=== PATIENT | female | born 1965 | race African-American/Black ===

== ENCOUNTER 2023-06-02 08:39 | Outpatient (CLI) | payer MEDICARE, MEDICAID ==
[2023-06-02 11:57] LABS: BASOPHILS # (AUTO) 0.1 10^3/uL (0.0-0.1); BASOPHILS % (AUTO) 0.7 %; EOSINOPHILS # (AUTO) 0.1 10^3/uL (0.0-0.7); EOSINOPHILS % (AUTO) 1.4 %; HCT - HEMATOCRIT 34.2 % (37.0-47.0); HGB - HEMOGLOBIN 11.2 g/dL (12.0-16.0); LYMPHOCYTES # (AUTO) 1.6 10^3/uL (1.5-3.5); LYMPHOCYTES % (AUTO) 23.1 %; MEAN CORPUSCULAR HGB CONC 32.7 g/dL (32.0-36.0); MEAN CORPUSCULAR VOLUME 85.5 fL (81.0-99.0); MEAN PLATELET VOLUME 9.7 fL (7.9-10.8); MONOCYTES # (AUTO) 0.5 10^3/uL (0.0-1.0); MONOCYTES % (AUTO) 6.8 %; NEUTROPHILS # (AUTO) 4.8 10^3/uL (1.5-6.6); NEUTROPHILS % (AUTO) 67.7 %; PLT - PLATELET COUNT 378 10^3/uL (130-450); RED CELL DISTRIBUTION WIDTH 12.9 % (12.0-15.0); WHITE BLOOD COUNT 7.1 x10^3/uL (4.8-10.8)
[2023-06-02 12:10] LABS: ESTIMATED AVERAGE GLUCOSE 97 mg/dL (70-100)
[2023-06-02 12:14] LABS: ALBUMIN/GLOBULIN RATIO 1.4 (1.0-2.2); ALKALINE PHOSPHATASE 76 IU/L (42-121); ALT ALANINE AMINOTRANSFERASE 20 IU/L (10-60); AST ASPARTATE AMINOTRANSFERASE 19 IU/L (10-42); BUN - BLOOD UREA NITROGEN 24 mg/dL (6-20); CALCIUM 9.5 mg/dL (8.5-10.3); CARBON DIOXIDE - CO2 25 mmol/L (21-32); CHLORIDE 111 mmol/L (101-111); CHOL/HDL RATIO 2.9 (<4.4); CHOLESTEROL 170 mg/dL; CREATININE 1.2 mg/dL (0.6-1.3); GFR - MDRD 46 (>89); GLUCOSE 87 mg/dL (74-104); HDL CHOLESTEROL 59 mg/dL; LDL CHOLESTEROL,CALCULATED 91 mg/dL; LDL/HDL RATIO 1.5 (<4.4); POTASSIUM 3.6 mmol/L (3.5-4.5); SODIUM 142 mmol/L (135-145); TOTAL PROTEIN 6.8 g/dL (6.4-8.9); TRIGLYCERIDES 98 mg/dL (48-352); VLDL CHOLESTEROL 20 mg/dL
[2023-06-02 12:18] LABS: THYROID STIMULATING HORMONE 1.83 uIU/mL (0.34-5.60)
== END 2023-06-02 08:40 | disposition home or self-care (01) ==
LOC: LAB.N 08:39
PROVIDERS: ATTEND Family Medicine
DX: R03.0 Elevated blood-pressure reading, without diagnosis of hypertension (principal); N63.0 Unspecified lump in unspecified breast; R14.0 Abdominal distension (gaseous); C76.2 Malignant neoplasm of abdomen; R23.8 Other skin changes
CPT/HCPCS: 36415; 80053; 80061; 83036; 83721; 84443; 85025

== ENCOUNTER 2023-06-05 11:43 | Outpatient (CLI) | payer MEDICARE, MEDICAID ==
[2023-06-05] MEDS ORDERED: iohexoL-300 100 ML VIAL ONE (11:47)
[2023-06-05] MEDS ORDERED: DIATRIZOATE MEGLU/DIATRIZO SOD 30 ML BOTTLE PO ONE (11:47)
--- NOTE | 2023-06-05 14:07 | CT Report ---
PROCEDURE: Abdomen/Pelvis W INDICATIONS: ABD DISTENSION CONTRAST: Omnipaque 300 100ml TECHNIQUE: After the administration of intravenous contrast, a CT scan of the abdomen and pelvis was performed. Images were recorded and evaluated at appropriate window settings. Reformats: coronal and sagittal. F or radiation dose reduction, the following was used: automated exposure control, adjustment of mA and /or kV according to patient size. COMPARISON: None. FINDINGS: Image quality: Diagnostic. Lower chest: Unremarkable. Liver: No solid mass. Gallbladder and biliary tree: Contracted but grossly unremarkable. Spleen: No splenomegaly. Pancreas: No pancreatic ductal dilation. Adrenals: No adrenal nodule. Kidneys and ureters: Significant bilateral hydronephrosis and hydroureter are present. Stomach, bowel and peritoneum: Significant colonic stool without definitive obstruction. Lymph nodes: No central or retroperitoneal adenopathy. Vessels: No infrarenal aortic aneurysm. PELVIS Reproductive organs: There is a large septated complex solid/cystic mass within the lower pelvis william uring 9.9 x 11.6 x 12.4 cm. Areas of satellite lobulation are also present the largest measuring 3.9 x 3.5 cm on series 2 image 108. Bladder: The bladder is deviated anteriorly secondary to above-described mass. Pelvic lymph nodes: No pelvic adenopathy by size criteria. Bones: No aggressive osseous abnormality. Other: No significant ventral or inguinal hernia. IMPRESSION: Large heterogeneous mass within the lower pelvis as described above most concerning for malignancy. I t is causing obstruction of the distal ureters with severe bilateral hydronephrosis and hydroureter. In addition, there is obstructive effect of the colon causing significant constipation. Despite no gr oss obstruction, there is marked compression of the colon secondary to mass lesion. Reviewed by: Maggie Sweeney MD on 06/05/2023 2:06 PM PDT Approved by: Maggie Sweeney MD on 06/05/2023 2:06 PM PDT Station ID: [id number]
[2023-06-05] MEDS: iohexoL-300 100 ML VIAL IVP ONE (14:47)
[2023-06-05] MEDS: DIATRIZOATE MEGLU/DIATRIZO SOD 30 ML BOTTLE PO ONE (14:48)
== END 2023-06-05 11:44 | disposition home or self-care (01) ==
LOC: DI 11:43
PROVIDERS: ATTEND Family Medicine
DX: C76.2 Malignant neoplasm of abdomen (principal); N13.1 Hydronephrosis with ureteral stricture, not elsewhere classified; K59.00 Constipation, unspecified
CPT/HCPCS: 74177; Q9963; Q9967

== ENCOUNTER 2023-06-28 11:00 | Outpatient (CLI) | payer MEDICARE, MEDICAID | END 2023-06-28 11:01 | disposition home or self-care (01) | LOC: LAB 11:00 | PROVIDERS: ATTEND Family Medicine | DX: C76.2 Malignant neoplasm of abdomen (principal) | CPT/HCPCS: 36415; 82378 ==

== ENCOUNTER 2023-07-11 09:01 | Outpatient (CLI) | payer MEDICARE, MEDICAID ==
--- NOTE | 2023-07-11 21:38 | Ultrasound Report ---
PROCEDURE: Pelvic Limited INDICATIONS: NEOPLASM OF ABD TECHNIQUE: Real-time transabdominal scanning was performed of the pelvic organs, with image documentation. COMPARISON: CT abdomen pelvis 06/05/2023 FINDINGS: Uterus and ovaries are not visualized. There is a complex mass within the lower pelvis measuring 10.0 x 1.3 x 9.8 cm. Areas of internal vascularity with solid and cystic components are identified. This corresponds to mass identified on CT abdomen pelvis on 06/05/2023. IMPRESSION: Heterogeneous mass with areas of solid and cystic components highly concerning for malignancy. Given lack of visualization of the ovaries and uterus, RECEIVABLE EXECUTIVE malignancy is favored. However, other etiologies which has secondary extension into the reproductive organs cannot be excluded. Surgical/oncology con sult is recommended. Additionally, as clinically indicated, further evaluation with MRI may be obtain ed. Reviewed by: Maggie Sweeney MD on 07/11/2023 9:37 PM PDT Approved by: Maggie Sweeney MD on 07/11/2023 9:37 PM PDT Station ID: [id number]
== END 2023-07-11 09:02 | disposition home or self-care (01) ==
LOC: DI 09:01
PROVIDERS: ATTEND Family Medicine
DX: C76.2 Malignant neoplasm of abdomen (principal)
CPT/HCPCS: 36415; 82378

== ENCOUNTER 2023-09-04 16:55 | Inpatient (IN) | payer MEDICARE, MEDICAID ==
[2023-09-04 17:48] LABS: BASOPHILS # (AUTO) 0.1 10^3/uL (0.0-0.1); BASOPHILS % (AUTO) 0.9 %; EOSINOPHILS # (AUTO) 0.1 10^3/uL (0.0-0.7); EOSINOPHILS % (AUTO) 0.9 %; LYMPHOCYTES # (AUTO) 1.2 10^3/uL (1.5-3.5); LYMPHOCYTES % (AUTO) 16.7 %; MEAN CORPUSCULAR HGB CONC 31.6 g/dL (32.0-36.0); MEAN CORPUSCULAR VOLUME 85.4 fL (81.0-99.0); MEAN PLATELET VOLUME 8.2 fL (7.9-10.8); MONOCYTES # (AUTO) 0.5 10^3/uL (0.0-1.0); MONOCYTES % (AUTO) 6.6 %; NEUTROPHILS # (AUTO) 5.2 10^3/uL (1.5-6.6); NEUTROPHILS % (AUTO) 74.5 %; PLT - PLATELET COUNT 372 10^3/uL (130-450); RED BLOOD COUNT 1.85 10^6/uL (4.20-5.40); RED CELL DISTRIBUTION WIDTH 15.8 % (12.0-15.0)
[2023-09-04 17:53] LABS: HCT - HEMATOCRIT 15.8 % (37.0-47.0); INR 1.2 (0.8-1.2); PT - PROTHROMBIN TIME 13.4 secs (9.9-12.6); SLIDE REVIEW? Indicated
[2023-09-04 18:25] LABS: ALBUMIN 4.3 g/dL (3.2-5.5); ALBUMIN/GLOBULIN RATIO 1.9 (1.0-2.2); BILIRUBIN,TOTAL 0.6 mg/dL (0.2-1.0); CALCIUM 9.2 mg/dL (8.5-10.3); CREATININE 2.9 mg/dL (0.6-1.3); POTASSIUM 3.4 mmol/L (3.5-4.5); TOTAL PROTEIN 6.6 g/dL (6.4-8.9)
[2023-09-04 18:40] LABS: PLATELET ESTIMATE, MANUAL NORMAL (130-450,000) (NORMAL); PLATELET MORPHOLOGY NORMAL APPEARANCE (NORMAL); RBC MORPHOLOGY (MULTIPLE) 2+ HYPOCHROMASIA (NORMAL)
--- NOTE | 2023-09-04 19:22 | ED Physician Documentation ---
History of Present Illness - Stated complaint Stated Complaint: SENT BY PCP - Chief complaint Chief Complaint: General - History obtained from History obtained from: Patient - History of Present Illness Timing: Today Pain level max: 5 Pain level now: 5 - Additonal information Additional information: Patient is a 58-year-old female who has a history of "stomach cancer". She states that she has not yet started chemotherapy. She states that she has undergone surgery for debulking of the tumor. Her care was at [facility] in [place]. She states that she has had 2 prior blood transfusions with her surgeries. She states that she had an outpatient blood draw with her oncologist today. Found to have a hemoglobin of 5, sent here for blood transfusion. She states that she is lightheaded when she stands up, short of breath with any exertion. Can only walk about 4 to 5 feet before stopping to rest. Denies any blood in the stool. No history of GI bleeding. Has chronic abdominal pain, unchanged from her normal. 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, Other - Allergies Allergies/Adverse Reactions: Allergies Allergy/AdvReac Type Severity Reaction Status Date / Time oxycodone AdvReac Emesis Verified 09/04/23 19:05 - Social History Does the pt smoke?: No Smoking Status: Never smoker Does the pt drink ETOH?: No Does the pt have substance abuse?: No - Immunizations Immunizations are current?: Yes - POLST Patient has POLST: No PD ED PE NORMAL - Vitals Vital signs reviewed: Yes - General General: Alert and oriented X 3, No acute distress - HEENT HEENT: Moist mucous membranes - Neck Neck: Supple, no meningeal sign - Cardiac Cardiac: RRR - Respiratory Respiratory: No respiratory distress, Clear bilaterally - Abdomen Abdomen: Soft, Non tender, Non distended - Derm Derm: Warm and dry - Extremities Extremities: No edema - Neuro Neuro: Alert and oriented X 3 Results - Vitals Vitals: Vital Signs - 24 hr 0709/04/23 09/04/23 17:03 19:32 20:15 Temperature 37.1 C Heart Rate 120 H 105 H Heart Rate [ 103 H Monitoring electrodes] Respiratory 18 15 30 H Rate Blood Pressure 140/74 H 103/67 Blood Pressure 101/63 [Left Brachial artery] O2 Saturation 100 97 100 09/04/23 09/04/23 20:16 20:30 Temperature 37.1 C 37.3 C Heart Rate Heart Rate [ 104 H 107 H Monitoring electrodes] Respiratory 18 17 Rate Blood Pressure Blood Pressure 96/68 100/72 [Left Brachial artery] O2 Saturation 100 100 Oxygen O2 Source Room air - Labs Labs: Laboratory Tests 09/04/23 09/04/23 09/04/23 15:43 17:40 17:40 WBC 7.0 RBC 1.85 L Hgb 5.0 L* Hct 15.8 L* MCV 85.4 MCH 27.0 MCHC 31.6 L RDW 15.8 H Plt Count 372 MPV 8.2 Neut # (Auto) 5.2 Lymph # (Auto) 1.2 L [place] # (Auto) 0.5 Eos # (Auto) 0.1 Baso # (Auto) 0.1 Absolute Nucleated RBC 0.00 Nucleated RBC % 0.0 Manual Slide Review Indicated Platelet Estimate NORMAL (130-450,000) Platelet Morphology NORMAL APPEARANCE RBC Morph Micro Appear 2+ HYPOCHROMASIA PT INR Sodium Potassium Chloride Carbon Dioxide Anion Gap BUN Creatinine Estimated GFR (MDRD) Glucose Calcium Total Bilirubin AST ALT Alkaline Phosphatase Total Protein Albumin Globulin Albumin/Globulin Ratio Lipase Blood Type A POSITIVE Blood Type Recheck A POSITIVE Antibody Screen NEGATIVE Crossmatch IS Only See Detail 09/04/23 09/04/23 17:40 17:40 WBC RBC Hgb Hct MCV MCH MCHC RDW Plt Count MPV Neut # (Auto) Lymph # (Auto) [place] # (Auto) Eos # (Auto) Baso # (Auto) Absolute Nucleated RBC Nucleated RBC % Manual Slide Review Platelet Estimate Platelet Morphology RBC Morph Micro Appear PT 13.4 H INR 1.2 Sodium 132 L Potassium 3.4 L Chloride 99 L Carbon Dioxide 22 Anion Gap 11.0 BUN 39 H Creatinine 2.9 H Estimated GFR (MDRD) 20 L Glucose 164 H Calcium 9.2 Total Bilirubin 0.6 AST 14 ALT 10 Alkaline Phosphatase 64 Total Protein 6.6 Albumin 4.3 Globulin 2.3 Albumin/Globulin Ratio 1.9 Lipase 187 H Blood Type Blood Type Recheck Antibody Screen Crossmatch IS Only PD Medical Decision Making - ED course Complexity details: reviewed results, re-evaluated patient, considered differential, d/w patient ED course: 58-year-old female with symptomatic anemia. She has had several blood transfusions since being diagnosed with "stomach cancer". Unclear what type of cancer she actually has. Denies any vaginal bleeding or GI bleeding. She was sent in for blood transfusion. She is significantly symptomatic, short of breath with even slight exertion. No hypoxia or respiratory distress. Discussed the case with the nighttime hospitalist who accepts. This document was made in part using voice recognition software. While efforts are made to proofread this document, sound alike and grammatical errors may occur. Departure - Departure Disposition: ED Place in Observation Clinical Impression: Symptomatic anemia, Tachycardia Condition: Stable Forms: PCP List
[2023-09-04] MEDS: traMADol 50 MG TABLET PO STA (20:09)
[2023-09-04] MEDS ORDERED: SODIUM CHLORIDE FLUSH 0.9% 10 ML SYRINGE IVP PRN (21:29)
[2023-09-04 22:42] LABS: IRON 92 ug/dL (50-212); MAGNESIUM 1.1 mg/dL (1.7-2.3)
[2023-09-04 22:43] LABS: % IRON SATURATION 29 % (20-50); CHOL/HDL RATIO 3.7 (<4.4); CHOLESTEROL 143 mg/dL; HDL CHOLESTEROL 39 mg/dL; LDL CHOLESTEROL,CALCULATED 74 mg/dL; LDL/HDL RATIO 1.9 (<4.4); TOTAL IRON BINDING CAPACITY 312 ug/dL (250-450); TRANSFERRIN 223 mg/dL (203-362); TRIGLYCERIDES 151 mg/dL; VLDL CHOLESTEROL 30 mg/dL
[2023-09-04 23:32] LABS: ESTIMATED AVERAGE GLUCOSE 85 mg/dL (70-100); HEMOGLOBIN A1c% 4.6 % (4.27-6.07)
[2023-09-04] MEDS ORDERED: SODIUM CHLORIDE 0.9% 500 ML IV ONE (23:49)
[2023-09-04 23:58] LABS: THYROID STIMULATING HORMONE 2.94 uIU/mL (0.34-5.60)
--- NOTE | 2023-09-05 00:01 | HISTORY & PHYSICAL EXAMINATION ---
Chief Complaint - Chief Complaint Chief Complaint: weakness, low h/h, s/p fall last week History of Present Illness - History of Present Illness HPI Comment/Other: pt with current dx of gastric cancer, being followed by outpt heme/onc, told to come to er for evaluation d/t complaints of generalized weakness and low h/h, with h/o same. she states that she has been feeling overall weak, and was started outpt on oxycodone for pain control, which made her feel worse. she reports one episode of feeling lightheaded and then she fell on the floor at [facility] but was able to get back home. no head injuries or loc or ams or confusion. she had labs done as outpt and hgb was 5. she will be started chemotherapy soon. no hematuria or blood per rectum or in stool. no chest pain, fevers, chills, but has some sob with walking. 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, Other - POLST Patient has POLST: No Meds/Allgy - Allergies Allergies/Adverse Reactions: Allergies Allergy/AdvReac Type Severity Reaction Status Date / Time oxycodone AdvReac Emesis Verified 09/04/23 19:05 Review of Systems - Other Findings Other Findings: 14 pt review done with positives per hpi; all others reviewed as negative Exam - Vital Signs Vital Signs: Vital Signs x48h Temp Pulse Pulse Resp BP BP Pulse Ox 09/04/23 23:38 37.5 C 102 H 20 108/72 09/04/23 23:33 37.5 C 95 20 108/72 09/04/23 23:01 37.1 C 97 18 123/80 100 09/04/23 22:47 37.1 C 97 18 123/80 100 09/04/23 22:00 101 H 16 99/75 98 09/04/23 20:30 37.3 C 107 H 14 98/69 98 09/04/23 20:16 37.1 C 104 H 18 96/68 100 09/04/23 20:15 103 H 30 H 101/63 100 07/08/24 19:32 105 H 15 103/67 97 09/04/23 17:03 37.1 C 120 H 18 140/74 H 100 Conclusion/Plan - Lab Results Fish Bones: 09/04/23 17:40 09/04/23 17:40 - Other Other Results/Comments: pt with - - acute anemia hgb 5 transfusions started in setting of cancer denies hematuria or blood per rectum h/o same per reports check iron panel aim for hgb 8 or above per heme/onc - jessica likely in setting of above pre-renal azotemia transfuse, check renal sono, ivf avoid nephrotoxins as much as possible, renally dose meds - gastric ca in setting of and contributory to above pt sees heme/onc outpt and will be starting treatment - s/p fall and weakness in setting above no trauma reported or noted no head injuries or loc f/u labs, h/h, renal function replete electrolytes further orders per clinical course
[2023-09-05] MEDS: traZODone 50 MG TABLET PO STA (00:11)
[2023-09-05] MEDS: SODIUM CHLORIDE FLUSH 0.9% 10 ML SYRINGE IVP SCH (01:00)
[2023-09-05] MEDS: LACTATED RINGERS 1,000 ML IV SCH (03:00)
[2023-09-05] MEDS: ONDANSETRON 4 MG/2 ML VIAL IVP PRN (03:01)
[2023-09-05] MEDS: GI COCKTAIL 120 ML BOTTLE PO ONE (05:35)
[2023-09-05 05:45] LABS: BASOPHILS # (AUTO) 0.1 10^3/uL (0.0-0.1); BASOPHILS % (AUTO) 0.9 %; EOSINOPHILS # (AUTO) 0.2 10^3/uL (0.0-0.7); EOSINOPHILS % (AUTO) 2.3 %; HCT - HEMATOCRIT 23.7 % (37.0-47.0); HGB - HEMOGLOBIN 7.9 g/dL (12.0-16.0); LYMPHOCYTES # (AUTO) 1.6 10^3/uL (1.5-3.5); LYMPHOCYTES % (AUTO) 22.4 %; MEAN CORPUSCULAR HEMOGLOBIN 28.1 pg (27.0-31.0); MEAN CORPUSCULAR HGB CONC 33.3 g/dL (32.0-36.0); MEAN CORPUSCULAR VOLUME 84.3 fL (81.0-99.0); MEAN PLATELET VOLUME 8.1 fL (7.9-10.8); MONOCYTES # (AUTO) 0.6 10^3/uL (0.0-1.0); MONOCYTES % (AUTO) 8.7 %; NEUTROPHILS # (AUTO) 4.5 10^3/uL (1.5-6.6); NEUTROPHILS % (AUTO) 65.1 %; PLT - PLATELET COUNT 305 10^3/uL (130-450); RED BLOOD COUNT 2.81 10^6/uL (4.20-5.40); RED CELL DISTRIBUTION WIDTH 15.5 % (12.0-15.0); WHITE BLOOD COUNT 6.9 x10^3/uL (4.8-10.8)
[2023-09-05 05:58] LABS: ALBUMIN/GLOBULIN RATIO 1.4 (1.0-2.2); BILIRUBIN,TOTAL 1.2 mg/dL (0.2-1.0); CALCIUM 8.8 mg/dL (8.5-10.3); CREATININE 2.6 mg/dL (0.6-1.3); POTASSIUM 3.2 mmol/L (3.5-4.5); TOTAL PROTEIN 6.9 g/dL (6.4-8.9)
[2023-09-05 06:00] LABS: MAGNESIUM 0.9 mg/dL (1.7-2.3)
[2023-09-05] MEDS ORDERED: MAGNESIUM SULFATE 1 GM/2 ML VIAL IVP STA (06:13)
[2023-09-05] MEDS: POTASSIUM CHLORIDE 20 MEQ TABLET PO ONE (06:30)
[2023-09-05] MEDS: SIMETHICONE CHEW 80 MG TABLET PO SCH (09:10)
[2023-09-05] MEDS: traMADol 50 MG TABLET PO PRN (09:10)
[2023-09-05] MEDS: PANTOPRAZOLE 40 MG VIAL IVP SCH ×2 (09:10→21:23)
[2023-09-05] MEDS ORDERED: PANTOPRAZOLE 40 MG VIAL IVP SCH (09:48)
--- NOTE | 2023-09-05 11:24 | CONSULTATION NOTE ---
Referring Provider Name of Referring Provider:: Medicine (Rashida) Consult Date: 09/05/23 (suspected UGI bleed) History of Present Illness - Admitted From Admitted From:: ED - History Obtained From Records Reviewed: yes History obtained from: patient, primary team - History of Present Illness HPI Comment/Other: This is a very pleasant 58-year-old female who reports a past medical history significant for endometriosis. She had a hysterectomy and bilateral salpingo- oophorectomy in 2007. In 2019 she had several tumors identified within her abdomen that were removed via exploratory laparotomy. Earlier this year, she presented with abdominal distention and was found to have a large pelvic mass causing bilateral hydronephrosis. She is being followed by Dr. Malave of gynecologic oncology at [facility]. The patient was feeling increasingly fatigued and came in to get labs yesterday. She was found to have a hemoglobin of 5 and was admitted. The patient has received several units of blood and is now feeling much better. She does endorse recent GERD symptoms over the last month or so which were new to her. Since receiving omeprazole in the emergency department, she is not having any epigastric pain or GERD. She does not take blood thinners, NSAIDs, or aspirin at home. She does not drink alcohol. She has not noted any melanotic stools or bright red blood per rectum. She very much would like to go home tomorrow, but is willing to undergo upper endoscopy if it is necessary and her treatment. She does have close follow-up planned with Dr. Vanegas next week. 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, Other (Diagnostic laparoscopy's, laparotomy in 2019) - POLST Patient has POLST: No Meds/Allgy - Home Medications Home Medications: Ambulatory Orders Medication Instructions Recorded Confirmed Docusate Sodium 100Mg Capsule 100 mg PO BID PRN 09/05/23 09/05/23 [Colace 100Mg Capsule] Omeprazole 20 mg PO DAILY PRN 09/05/23 09/05/23 Simethicone [Mylicon] 80 mg PO QID PRN 09/05/23 09/05/23 - Allergies Allergies/Adverse Reactions: Allergies Allergy/AdvReac Type Severity Reaction Status Date / Time oxycodone AdvReac Emesis Verified 09/04/23 19:05 Review of Systems - Constitutional Constitutional: reports: Other (A complete 10 point review of symptoms is otherwise negative except for that noted in HPI and PMH.) Exam - Vital Signs Vital Signs: Vital Signs x48h Temp Pulse Resp BP Pulse Ox 09/05/23 09:38 37.2 C 97 18 112/65 100 09/05/23 09:22 37.2 C 93 18 98/62 100 09/05/23 08:11 36.7 C 109 H 18 116/77 97 - Physical Exam Comments/Other: GEN: No acute distress, appears stated age, alert and oriented HEENT: NCAT, MMM, EOMI NEURO: CN II-XII grossly intact, no obvious focal deficits CV: RRR, no murmer appreciated PULM: CTAB, no wheezes appreciated ABD: soft, non tender in the upper abdomen, specifically nontender in the epigastrium, obvious pelvic fullness, no rebound or guarding CIRCULATORY: no clubbing, cyanosis, or edema SKIN: no lesions appreciated LYMPH: no obvious lymphadenopathy MSK: 4/4 strength in all extremities PSYCH: Affect is appropriate Conclusion and Plan - Lab Results Laboratory Results 09/05/23 05:34: Sodium 132 L, Potassium 3.2 L, Chloride 99 L, Carbon Dioxide 23, Anion Gap 10.0, BUN 35 H, Creatinine 2.6 H, Estimated GFR (MDRD) 23 L, Glucose 84, Calcium 8.8, Magnesium 0.9 L*, Total Bilirubin 1.2 H, AST 13, ALT 9 L, Alkaline Phosphatase 59, Total Protein 6.9, Albumin 4.0, Globulin 2.9, Albumin/Globulin Ratio 1.4 09/05/23 05:34: WBC 6.9, RBC 2.81 L, Hgb 7.9 L, Hct 23.7 L, MCV 84.3, MCH 28.1, MCHC 33.3, RDW 15.5 H, Plt Count 305, MPV 8.1, Neut # (Auto) 4.5, Lymph # (Auto) 1.6, [place] # (Auto) 0.6, Eos # (Auto) 0.2, Baso # (Auto) 0.1, Absolute Nucleated RBC 0.00, Nucleated RBC % 0.0 09/04/23 17:40: Sodium Cancelled, Potassium Cancelled, Chloride Cancelled, Carbon Dioxide Cancelled, Anion Gap Cancelled, BUN Cancelled, Creatinine Cancelled, Estimated GFR (MDRD) Cancelled, Glucose Cancelled, Calcium Cancelled, Magnesium 1.1 L, Iron 92, TIBC 312, % Saturation 29, Transferrin 223, Total Bilirubin Cancelled, AST Cancelled, ALT Cancelled, Alkaline Phosphatase Cancelled, Total Protein Cancelled, Albumin Cancelled, Globulin Cancelled, Albumin/Globulin Ratio Cancelled, Triglycerides 151, Cholesterol 143, LDL Cholesterol, Calc 74, VLDL Cholesterol 30, HDL Cholesterol 39 L, LDL/HDL Ratio 1.9, Cholesterol/HDL Ratio 3.7, TSH 2.94 09/04/23 17:40: Estimat Average Glucose 85, Hemoglobin A1c % 4.6 09/04/23 17:40: Triglycerides Cancelled, Cholesterol Cancelled, LDL Cholesterol, Calc Cancelled, VLDL Cholesterol Cancelled, HDL Cholesterol Cancelled, LDL/HDL Ratio Cancelled, Cholesterol/HDL Ratio Cancelled, TSH Cancelled 09/04/23 17:40: Sodium 132 L, Potassium 3.4 L, Chloride 99 L, Carbon Dioxide 22, Anion Gap 11.0, BUN 39 H, Creatinine 2.9 H, Estimated GFR (MDRD) 20 L, Glucose 164 H, Calcium 9.2, Total Bilirubin 0.6, AST 14, ALT 10, Alkaline Phosphatase 64, Total Protein 6.6, Albumin 4.3, Globulin 2.3, Albumin/Globulin Ratio 1.9, Lipase 187 H 09/04/23 17:40: PT 13.4 H, INR 1.2 09/04/23 17:40: WBC 7.0, RBC 1.85 L, Hgb 5.0 L*, Hct 15.8 L*, MCV 85.4, MCH 27.0, MCHC 31.6 L, RDW 15.8 H, Plt Count 372, MPV 8.2, Neut # (Auto) 5.2, Lymph # (Auto) 1.2 L, [place] # (Auto) 0.5, Eos # (Auto) 0.1, Baso # (Auto) 0.1, Absolute Nucleated RBC 0.00, Nucleated RBC % 0.0, Manual Slide Review Indicated, Platelet Estimate NORMAL (130-450,000), Platelet Morphology NORMAL APPEARANCE, RBC Morph Micro Appear 2+ HYPOCHROMASIA 09/04/23 17:40: Blood Type A POSITIVE, Antibody Screen NEGATIVE, Crossmatch IS Only See Detail 09/04/23 15:43: Blood Type Recheck A POSITIVE - Consultation Note Consultation Note: This is a 58-year-old female with: 1. Pelvic mass -Currently being worked up by Dr. Malave of gynecologic oncology 2. Anemia -Hemoglobin 5 on admission, better after transfusion I was consulted for concern of a gastrointestinal bleed contributing to the patient's anemia. The patient denies any melanotic stools. She is not on NSAIDs or blood thinners. After discussion with the patient's gynecologic oncology team, primary medicine team here, and with the patient, we will plan to recheck her hemoglobin in the morning. If stable at that time, the patient will be discharged on a PPI. If her hemoglobin drops, we will proceed with upper endoscopy tomorrow. I discussed the risks, benefits, and alternatives of upper endoscopy including bleeding and perforation with the patient. She voiced understanding, her questions were answered, and a consent was signed by the patient. Thank you very much for consulting me in the care of this patient. I will continue to follow.
--- NOTE | 2023-09-05 11:52 | PHARMACY PROGRESS NOTE ---
- Best Possible Medication History Admit Date and Time: 09/04/232130 Processed by: Pharmacy Medication History completed: Yes Patient Interview: Completed Secondary Source(s): Insurance records As the person ultimately responsible for medication therapy, providers are able to order a medication from an existing home medication list in [facility] via the "Reconcile Routine" prior to Confirmation of that medication by learning support assistant. Such practice is discouraged except when the physician, in their clinical judgment, deems that a medical need exists for a medication without regard to previous use.
[2023-09-05] MEDS: SODIUM CHLORIDE 0.9% IV ONE (13:15)
[2023-09-05] MEDS: MAGNESIUM SULFATE IV ONE (13:15)
[2023-09-05] MEDS: POTASSIUM CHLOR 10 MEQ/100 ML 10 MEQ/100 ML BAG IV SCH (13:25)
--- NOTE | 2023-09-05 14:31 | PROVIDER PROGRESS NOTE ---
Assessment/Plan - Problem List (1) Acute blood loss anemia Assessment/Plan: --Transfused 3 units of packed red blood cells. Case was discussed with general surgery. We will obtain a hemoglobin in the morning and pending results may proceed with an EGD. However if her hemoglobin remained stable and she is asymptomatic, plan to discharge with outpatient follow-up with gynecology oncology. -- Continue IV Protonix. Anticipate discharge on oral Protonix. (2) Ovarian cancer Assessment/Plan: -- Patient is a prior history of a ovarian malignancy with a debulking surgery in 2019. It appears that she may have a reoccurrence and is currently following with Dr. Jack Malave at [facility]. I did discuss this with their clinic and they will have a follow-up with her on September 13. They are considering performing another debulking surgery which may require colonic resection. (3) ANNI (acute kidney injury) Assessment/Plan: -- Likely combination of postrenal from her ovarian malignancy causing bilateral hydronephrosis as well as prerenal from acute blood loss anemia. Repeat BMP in AM. --I did discuss this with her gynecologic team. They will follow-up as an outpatient and coordinate bilateral stent placement in her ureters. (4) GERD (gastroesophageal reflux disease) Assessment/Plan: --Continue PO protonix. - Current Meds Current Meds: Current Medications Generic Name Dose Route Start Last Admin Trade Name Freq PRN Reason Stop Dose Admin Lactated Ringer's 1,000 mls @ 100 mls/hr 09/04/23 22:00 09/05/23 03:00 Lr IV 100 mls/hr .Q10H LAURITA Administration Ondansetron HCl 4 mg 09/04/23 21:29 09/05/23 03:01 Ondansetron 4 Mg/2 Ml Vial IVP 4 mg Q6HR PRN Administration Nausea / Vomiting Simethicone 80 mg 09/05/23 09:00 09/05/23 09:10 Simethicone Chew 80 Mg Tablet PO 80 mg 0900,1300,1800,2100 LAURITA Administration Sodium Chloride 10 ml 09/05/23 01:00 09/05/23 09:27 Sodium Chloride Flush 0.9% 10 Ml Syringe IVP 10 ml 0100,0900,1700 LAURITA Administration Tramadol HCl 50 mg 09/05/23 08:29 09/05/23 09:10 Tramadol 50 Mg Tablet PO 50 mg Q12H PRN Administration Moderate Pain (Level 4-6) - Lab Result Fish Bone Diagrams: 09/05/23 05:34 09/05/23 05:34 - Additional Planning My Orders: My Active Orders 09/05/23 FECAL OCCULT BLOOD (FIT) Routine 09/05/23 07:17 Transfuse RBCs Leukoreduced [RC] .ONCE 09/05/23 08:29 traMADol [Ultram] 50 mg PO Q12H PRN 09/05/23 09:00 Simethicone [Mylicon] 80 mg PO 0900,1300,1800,2100 09/05/23 21:00 Pantoprazole [Protonix] 40 mg IVP BID Subjective - Subjective Patient Reports: Feeling Better, Resting Comfortably, Other (Feeling improved after 3 units of pRBC.) Objective Vital Signs: Vital Signs - 24 hr 09/04/23 09/04/23 09/04/23 17:03 19:32 20:15 Temperature 37.1 C Heart Rate 120 H 105 H Heart Rate [ Brachial] Heart Rate [ 103 H Monitoring electrodes] Respiratory 18 15 30 H Rate Blood Pressure 140/74 H 103/67 Blood Pressure 101/63 [Left Brachial artery] O2 Saturation 100 97 100 09/04/23 09/04/23 09/04/23 20:16 20:30 22:00 Temperature 37.1 C 37.3 C Heart Rate Heart Rate [ Brachial] Heart Rate [ 104 H 107 H 101 H Monitoring electrodes] Respiratory 18 14 16 Rate Blood Pressure Blood Pressure 96/68 98/69 99/75 [Left Brachial artery] O2 Saturation 100 98 98 09/04/23 09/04/23 09/04/23 22:47 23:01 23:33 Temperature 37.1 C 37.1 C 37.5 C Heart Rate Heart Rate [ Brachial] Heart Rate [ 97 97 95 Monitoring electrodes] Respiratory 18 18 20 Rate Blood Pressure Blood Pressure 123/80 123/80 108/72 [Left Brachial artery] O2 Saturation 100 100 09/04/23 09/05/23 09/05/23 23:38 00:02 00:21 Temperature 37.5 C 37.5 C 37.3 C Heart Rate Heart Rate [ Brachial] Heart Rate [ 102 H 102 H 98 Monitoring electrodes] Respiratory 20 20 20 Rate Blood Pressure Blood Pressure 108/72 110/68 122/75 [Left Brachial artery] O2 Saturation 09/05/23 09/05/23 09/05/23 02:52 02:55 02:56 Temperature 37 C 37 C 37 C Heart Rate Heart Rate [ Brachial] Heart Rate [ 94 74 74 Monitoring electrodes] Respiratory 18 18 18 Rate Blood Pressure Blood Pressure 121/77 121/77 121/77 [Left Brachial artery] O2 Saturation 95 100 100 09/05/23 09/05/23 09/05/23 08:11 09:22 09:38 Temperature 36.7 C 37.2 C 37.2 C Heart Rate Heart Rate [ 109 H 93 97 Brachial] Heart Rate [ Monitoring electrodes] Respiratory 18 18 18 Rate Blood Pressure Blood Pressure 116/77 98/62 112/65 [Left Brachial artery] O2 Saturation 97 100 100 09/05/23 09/05/23 11:20 12:51 Temperature 36.7 C 37.2 C Heart Rate Heart Rate [ 95 94 Brachial] Heart Rate [ Monitoring electrodes] Respiratory 18 18 Rate Blood Pressure Blood Pressure 102/58 L 82/54 L [Left Brachial artery] O2 Saturation 100 99 Oxygen O2 Source Room air I&O (Last 24 Hrs): Intake and Output Totals x24h 09/03/23 09/04/23 09/05/23 23:59 23:59 23:59 Intake Total 750 1320 Balance 750 1320 General: Alert, Oriented x3, Cooperative, No acute distress Neuro: Alert, CN 2-12 Grossly Intact, Oriented Times 3 Cardiovascular: Regular rate, Normal S1, Normal S2, No murmurs Respiratory: Chest non-tender, No respiratory distress, Breath sounds nml Abdomen: Normal bowel sounds, Soft, No tenderness, No hepatospenomegaly, No masses - Results Results: Laboratory Results WBC 6.9 x10^3/uL (4.8-10.8) 09/05/23 05:34 RBC 2.81 10^6/uL (4.20-5.40) L 09/05/23 05:34 Hgb 7.9 g/dL (12.0-16.0) L 09/05/23 05:34 Hct 23.7 % (37.0-47.0) L 09/05/23 05:34 MCV 84.3 fL (81.0-99.0) 09/05/23 05:34 MCH 28.1 pg (27.0-31.0) 09/05/23 05:34 MCHC 33.3 g/dL (32.0-36.0) 09/05/23 05:34 RDW 15.5 % (12.0-15.0) H 09/05/23 05:34 Plt Count 305 10^3/uL (130-450) 09/05/23 05:34 MPV 8.1 fL (7.9-10.8) 09/05/23 05:34 Neut # (Auto) 4.5 10^3/uL (1.5-6.6) 09/05/23 05:34 Lymph # (Auto) 1.6 10^3/uL (1.5-3.5) 09/05/23 05:34 [place] # (Auto) 0.6 10^3/uL (0.0-1.0) 09/05/23 05:34 Eos # (Auto) 0.2 10^3/uL (0.0-0.7) 09/05/23 05:34 Baso # (Auto) 0.1 10^3/uL (0.0-0.1) 09/05/23 05:34 Absolute Nucleated RBC 0.00 x10^3/uL 09/05/23 05:34 Nucleated RBC % 0.0 /100WBC 09/05/23 05:34 Manual Slide Review Indicated 09/04/23 17:40 Platelet Estimate NORMAL (130-450,000) (NORMAL) 09/04/23 17:40 Platelet Morphology NORMAL APPEARANCE (NORMAL) 09/04/23 17:40 RBC Morph Micro Appear 2+ HYPOCHROMASIA (NORMAL) 09/04/23 17:40 PT 13.4 secs (9.9-12.6) H 09/04/23 17:40 INR 1.2 (0.8-1.2) 09/04/23 17:40 Sodium 132 mmol/L (135-145) L 09/05/23 05:34 Potassium 3.2 mmol/L (3.5-4.5) L 09/05/23 05:34 Chloride 99 mmol/L (101-111) L 09/05/23 05:34 Carbon Dioxide 23 mmol/L (21-32) 09/05/23 05:34 Anion Gap 10.0 (6-13) 09/05/23 05:34 BUN 35 mg/dL (6-20) H 09/05/23 05:34 Creatinine 2.6 mg/dL (0.6-1.3) H 09/05/23 05:34 Estimated GFR (MDRD) 23 (>89) L 09/05/23 05:34 Glucose 84 mg/dL (74-104) 09/05/23 05:34 Estimat Average Glucose 85 mg/dL (70-100) 09/04/23 17:40 Hemoglobin A1c % 4.6 % (4.27-6.07) 09/04/23 17:40 Calcium 8.8 mg/dL (8.5-10.3) 09/05/23 05:34 Magnesium 0.9 mg/dL (1.7-2.3) L* 09/05/23 05:34 Iron 92 ug/dL (50-212) 09/04/23 17:40 TIBC 312 ug/dL (250-450) 09/04/23 17:40 % Saturation 29 % (20-50) 09/04/23 17:40 Transferrin 223 mg/dL (203-362) 09/04/23 17:40 Total Bilirubin 1.2 mg/dL (0.2-1.0) H 09/05/23 05:34 AST 13 IU/L (10-42) 09/05/23 05:34 ALT 9 IU/L (10-60) L 09/05/23 05:34 Alkaline Phosphatase 59 IU/L (42-121) 09/05/23 05:34 Total Protein 6.9 g/dL (6.4-8.9) 09/05/23 05:34 Albumin 4.0 g/dL (3.2-5.5) 09/05/23 05:34 Globulin 2.9 g/dL (2.1-4.2) 09/05/23 05:34 Albumin/Globulin Ratio 1.4 (1.0-2.2) 09/05/23 05:34 Triglycerides 151 mg/dL 09/04/23 17:40 Triglycerides Cancelled 09/04/23 17:40 Cholesterol 143 mg/dL (-200) 09/04/23 17:40 Cholesterol Cancelled 09/04/23 17:40 LDL Cholesterol, Calc 74 mg/dL (-129) 09/04/23 17:40 LDL Cholesterol, Calc Cancelled 09/04/23 17:40 VLDL Cholesterol 30 mg/dL 09/04/23 17:40 VLDL Cholesterol Cancelled 09/04/23 17:40 HDL Cholesterol 39 mg/dL (60-) L 09/04/23 17:40 HDL Cholesterol Cancelled 09/04/23 17:40 LDL/HDL Ratio 1.9 (<4.4) 09/04/23 17:40 LDL/HDL Ratio Cancelled 09/04/23 17:40 Cholesterol/HDL Ratio 3.7 (<4.4) 09/04/23 17:40 Cholesterol/HDL Ratio Cancelled 09/04/23 17:40 Lipase 187 U/L (11-82) H 09/04/23 17:40 TSH 2.94 uIU/mL (0.34-5.60) 09/04/23 17:40 TSH Cancelled 09/04/23 17:40 Blood Type A POSITIVE 09/04/23 17:40 Blood Type Recheck A POSITIVE 09/04/23 15:43 Antibody Screen NEGATIVE 09/04/23 17:40 Crossmatch IS Only See Detail 09/04/23 17:40
[2023-09-05] MEDS ORDERED: SIMETHICONE CHEW 80 MG TABLET PO PRN (14:41)
[2023-09-05 14:54] LABS: HCT - HEMATOCRIT 28.2 % (37.0-47.0); HGB - HEMOGLOBIN 9.4 g/dL (12.0-16.0)
[2023-09-05] MEDS: MAGNESIUM SULFATE 2 GRAM 2 GM/50 ML BAG IV ONE ×2 (15:36→16:24)
[2023-09-05] MEDS: ACETAMINOPHEN 325 MG TABLET PO PRN (19:36)
--- NOTE | 2023-09-06 00:31 | Ultrasound Report ---
PROCEDURE: Renal (Retroperitoneal) INDICATIONS: jessica TECHNIQUE: Real-time scanning was performed of the retroperitoneal organs, with image documentation. COMPARISON: CT abdomen pelvis 06/05/2023. FINDINGS: Kidneys: Kidneys are normal in size. Right kidney measures 11.4 cm long; left kidney measures 10.9 cm long. Right renal cortical thickness is 0.4 cm; left renal cortical thickness is 1.4 cm. There is severe bilateral hydronephrosis, right greater than left. No nephrolithiasis. Bladder: Pre-void bladder volume is 655 mL. Post-void residual is 414 mL. Pre-void images demonstr ate no intraluminal masses or stones. On pre-void images, bilateral ureteral jets are not visualized with color Doppler interrogation. (Of note, ureteral jets may not be detectable in up to 25% of linette es due to insufficient differences in specific gravity between ureteral and bladder urine). Miscellaneous: There is a large irregular vascular mass posterior to the bladder measuring approximat shawanda 12.0 x 10.7 x 11.1 cm corresponding to previously described pelvic mass seen on prior CT. IMPRESSION: Severe bilateral hydronephrosis, right greater than left. Overall similar in extent compared to CT 06/05/2023 given differences in technique. Post void residual volume of 414 cc. Bilateral ureteral jets not visualized. Redemonstration of large pelvic mass measuring up to 12.0 cm, better seen on prior CT. Reviewed by: Mila Mckeon MD, PhD on 09/06/2023 12:30 AM PDT Approved by: Mila Mckeon MD, PhD on 09/06/2023 12:30 AM PDT Station ID: [id number]
[2023-09-06 05:57] LABS: BASOPHILS # (AUTO) 0.1 10^3/uL (0.0-0.1); BASOPHILS % (AUTO) 0.9 %; EOSINOPHILS # (AUTO) 0.2 10^3/uL (0.0-0.7); EOSINOPHILS % (AUTO) 2.6 %; HCT - HEMATOCRIT 28.6 % (37.0-47.0); HGB - HEMOGLOBIN 9.3 g/dL (12.0-16.0); LYMPHOCYTES # (AUTO) 1.6 10^3/uL (1.5-3.5); LYMPHOCYTES % (AUTO) 24.8 %; MEAN CORPUSCULAR HEMOGLOBIN 27.4 pg (27.0-31.0); MEAN CORPUSCULAR HGB CONC 32.5 g/dL (32.0-36.0); MEAN CORPUSCULAR VOLUME 84.1 fL (81.0-99.0); MONOCYTES # (AUTO) 0.6 10^3/uL (0.0-1.0); MONOCYTES % (AUTO) 8.9 %; NEUTROPHILS # (AUTO) 4.1 10^3/uL (1.5-6.6); NEUTROPHILS % (AUTO) 62.5 %; PLT - PLATELET COUNT 286 10^3/uL (130-450); RED CELL DISTRIBUTION WIDTH 16.2 % (12.0-15.0); WHITE BLOOD COUNT 6.6 x10^3/uL (4.8-10.8)
[2023-09-06 06:16] LABS: CALCIUM 9.3 mg/dL (8.5-10.3); CREATININE 2.5 mg/dL (0.6-1.3); MAGNESIUM 2.4 mg/dL (1.7-2.3); POTASSIUM 4.3 mmol/L (3.5-4.5)
[2023-09-06] MEDS: DOCUSATE SODIUM 100 MG CAPSULE PO PRN (09:24)
[2023-09-06] MEDS ORDERED: PROPOFOL 500 MG/50 ML 500 MG/50 ML VIAL ONE (09:35)
[2023-09-06] MEDS ORDERED: MIDAZOLAM 2 MG/2 ML VIAL ONE (11:39)
--- NOTE | 2023-09-06 11:43 | ANESTHESIA ---
Pre-Anesthesia VS, & Labs - Diagnosis GI bleed - Procedure EGD Vital Signs: Temp Pulse Resp BP Pulse Ox O2 Flow Rate 36.7 C 77 16 104/69 98 09/06/23 07:25 09/06/23 07:25 09/06/23 07:25 09/06/23 07:25 09/06/23 07:25 Height: 5 ft 4 in Weight (kg): 44.6 kg Body Mass Index: 16.9 BMI Classification: Underweight - NPO >8 hours - Is Patient ?: No - Lab Results Current Lab Results: Laboratory Tests 09/06/23 05:47: Sodium 136, Potassium 4.3, Chloride 106, Carbon Dioxide 24, Anion Gap 6.0, BUN 30 H, Creatinine 2.5 H, Estimated GFR (MDRD) 24 L, Glucose 82, Calcium 9.3, Magnesium 2.4 H 09/06/23 05:47: WBC 6.6, RBC 3.40 L, Hgb 9.3 L, Hct 28.6 L, MCV 84.1, MCH 27.4, MCHC 32.5, RDW 16.2 H, Plt Count 286, MPV 8.0, Neut # (Auto) 4.1, Lymph # (Auto) 1.6, [place] # (Auto) 0.6, Eos # (Auto) 0.2, Baso # (Auto) 0.1, Absolute Nucleated RBC 0.00, Nucleated RBC % 0.0 09/05/23 14:49: Hgb 9.4 L, Hct 28.2 L 09/05/23 05:34: Sodium 132 L, Potassium 3.2 L, Chloride 99 L, Carbon Dioxide 23, Anion Gap 10.0, BUN 35 H, Creatinine 2.6 H, Estimated GFR (MDRD) 23 L, Glucose 84, Calcium 8.8, Magnesium 0.9 L*, Total Bilirubin 1.2 H, AST 13, ALT 9 L, Alkaline Phosphatase 59, Total Protein 6.9, Albumin 4.0, Globulin 2.9, Albumin/Globulin Ratio 1.4 09/05/23 05:34: WBC 6.9, RBC 2.81 L, Hgb 7.9 L, Hct 23.7 L, MCV 84.3, MCH 28.1, MCHC 33.3, RDW 15.5 H, Plt Count 305, MPV 8.1, Neut # (Auto) 4.5, Lymph # (Auto) 1.6, [place] # (Auto) 0.6, Eos # (Auto) 0.2, Baso # (Auto) 0.1, Absolute Nucleated RBC 0.00, Nucleated RBC % 0.0 09/04/23 17:40: Sodium Cancelled, Potassium Cancelled, Chloride Cancelled, C arbon Dioxide Cancelled, Anion Gap Cancelled, BUN Cancelled, Creatinine Cancelled, Estimated GFR (MDRD) Cancelled, Glucose Cancelled, Calcium Cancelled, Magnesium 1.1 L, Iron 92, TIBC 312, % Saturation 29, Transferrin 223, Total Bilirubin Cancelled, AST Cancelled, ALT Cancelled, Alkaline Phosphatase Cancelled, Total Protein Cancelled, Albumin Cancelled, Globulin Cancelled, Albumin/Globulin Ratio Cancelled, Triglycerides 151, Cholesterol 143, LDL Cholesterol, Calc 74, VLDL Cholesterol 30, HDL Cholesterol 39 L, LDL/HDL Ratio 1.9, Cholesterol/HDL Ratio 3.7, TSH 2.94 09/04/23 17:40: Estimat Average Glucose 85, Hemoglobin A1c % 4.6 09/04/23 17:40: Triglycerides Cancelled, Cholesterol Cancelled, LDL Cholesterol, Calc Cancelled, VLDL Cholesterol Cancelled, HDL Cholesterol Cancelled, LDL/HDL Ratio Cancelled, Cholesterol/HDL Ratio Cancelled, TSH Cancelled 09/04/23 17:40: Sodium 132 L, Potassium 3.4 L, Chloride 99 L, Carbon Dioxide 22, Anion Gap 11.0, BUN 39 H, Creatinine 2.9 H, Estimated GFR (MDRD) 20 L, Glucose 164 H, Calcium 9.2, Total Bilirubin 0.6, AST 14, ALT 10, Alkaline Phosphatase 64, Total Protein 6.6, Albumin 4.3, Globulin 2.3, Albumin/Globulin Ratio 1.9, Lipase 187 H 09/04/23 17:40: PT 13.4 H, INR 1.2 09/04/23 17:40: WBC 7.0, RBC 1.85 L, Hgb 5.0 L*, Hct 15.8 L*, MCV 85.4, MCH 2 7.0, MCHC 31.6 L, RDW 15.8 H, Plt Count 372, MPV 8.2, Neut # (Auto) 5.2, Lymph # (Auto) 1.2 L, [place] # (Auto) 0.5, Eos # (Auto) 0.1, Baso # (Auto) 0.1, Absolute Nucleated RBC 0.00, Nucleated RBC % 0.0, Manual Slide Review Indicated, Platelet Estimate NORMAL (130-450,000), Platelet Morphology NORMAL APPEARANCE, RBC Morph Micro Appear 2+ HYPOCHROMASIA 09/04/23 17:40: Blood Type A POSITIVE, Antibody Screen NEGATIVE, Crossmatch IS Only See Detail 09/04/23 15:43: Blood Type Recheck A POSITIVE Lab results reviewed: Yes Fish Bones: 09/06/23 05:47 09/06/23 05:47 Home Medications and Allergies Home Medications: Ambulatory Orders Docusate Sodium 100Mg Capsule [Colace 100Mg Capsule] 100 mg PO BID PRN 09/05/23 Omeprazole 20 mg PO DAILY PRN 09/05/23 Simethicone [Mylicon] 80 mg PO QID PRN 09/05/23 Active Medications Acetaminophen (Acetaminophen 325 Mg Tablet) 650 mg PO Q6H PRN PRN Reason: Pain 1 to 4, or Fever Last Admin: 09/06/23 02:18 Dose: 650 mg Docusate Sodium (Docusate Sodium 100 Mg Capsule) 100 mg PO BID PRN PRN Reason: Constipation Last Admin: 09/06/23 09:24 Dose: 100 mg Lactated Ringer's (Lr) 1,000 mls @ 100 mls/hr IV .Q10H LAURITA Last Admin: 09/06/23 05:08 Dose: 100 mls/hr Ondansetron HCl (Ondansetron 4 Mg/2 Ml Vial) 4 mg IVP Q6HR PRN PRN Reason: Nausea / Vomiting Last Admin: 09/05/23 03:01 Dose: 4 mg Pantoprazole Sodium (Pantoprazole 40 Mg Vial) 40 mg IVP BID LAURITA Last Admin: 09/06/23 09:24 Dose: 40 mg Simethicone (Simethicone Chew 80 Mg Tablet) 80 mg PO 0900,1300,1800,2100 LAURITA Last Admin: 09/06/23 09:24 Dose: 80 mg Simethicone (Simethicone Chew 80 Mg Tablet) 80 mg PO QID PRN PRN Reason: Gas Sodium Chloride (Sodium Chloride Flush 0.9% 10 Ml Syringe) 10 ml IVP PRN PRN PRN Reason: NEEDED PER PROVIDER ORDERS Sodium Chloride (Sodium Chloride Flush 0.9% 10 Ml Syringe) 10 ml IVP 0100,090 0,1700 LAURITA Last Admin: 09/06/23 09:25 Dose: 10 ml Tramadol HCl (Tramadol 50 Mg Tablet) 50 mg PO Q12H PRN PRN Reason: Moderate Pain (Level 4-6) Last Admin: 09/05/23 21:23 Dose: 50 mg Docusate Sodium 100Mg Capsule [Colace 100Mg Capsule] 100 mg PO BID PRN 09/05/23 Omeprazole 20 mg PO DAILY PRN 09/05/23 Simethicone [Mylicon] 80 mg PO QID PRN 09/05/23 Allergies/Adverse Reactions: Allergies Allergy/AdvReac Type Severity Reaction Status Date / Time oxycodone AdvReac Emesis Verified 09/04/23 19:05 Anes History & Medical History - Anesthetic History Anesthesia Complications: reports: No previous complications Family history of Anesthesia Complications: Denies Family history of Malignant Hyperthermia: Denies - Medical History Cardiovascular: reports: Hypertension Pulmonary: reports: None Gastrointestinal: reports: Other Urinary: reports: None Neuro: reports: None Musculoskeletal: reports: Osteoarthritis Endocrine/Autoimmune: reports: None Blood Disorders: reports: Anemia Skin: reports: None Smoking Status: Never smoker - Surgical History General: reports: Other (stomach cancer) Gynecologic: reports: Hysterectomy, Oophrectomy, Other (Diagnostic laparoscopy's, laparotomy in 2019) Exam General: Alert, Oriented x3, Cooperative Dental: WNL Mouth Openin Fingerbreadth Neck Mobility: Normal Mallampati classification: II Thyromental Distance: 4-6 cm Respiratory: Lungs clear, Normal breath sounds, No respiratory distress Cardiovascular: Regular rate Neurological: Normal speech Mental/Cognitive Status: Alert/Oriented X3, Normal for patient Cognitive Status: Within normal limits Plan Anesthesia Type: Total IV Consent for Procedure(s) Verified and Reviewed: Yes Code Status: Attempt Resuscitation ASA classification: 3-Severe systemic disease Is this case an emergency?: Yes
--- NOTE | 2023-09-06 11:57 | PROVIDER PROGRESS NOTE ---
Assessment/Plan - Current Meds Current Meds: Current Medications Generic Name Dose Route Start Last Admin Trade Name Elzbieta PRN Reason Stop Dose Admin Acetaminophen 650 mg 09/04/23 21:29 09/06/23 02:18 Acetaminophen 325 Mg Tablet PO 650 mg Q6H PRN Administration Pain 1 to 4, or Fever Docusate Sodium 100 mg 09/06/23 08:41 09/06/23 09:24 Docusate Sodium 100 Mg Capsule PO 100 mg BID PRN Administration Constipation Lactated Ringer's 1,000 mls @ 100 mls/hr 09/04/23 22:00 09/06/23 05:08 Lr IV 100 mls/hr .Q10H LAURITA Administration Ondansetron HCl 4 mg 09/04/23 21:29 09/05/23 03:01 Ondansetron 4 Mg/2 Ml Vial IVP 4 mg Q6HR PRN Administration Nausea / Vomiting Pantoprazole Sodium 40 mg 09/05/23 21:00 09/06/23 09:24 Pantoprazole 40 Mg Vial IVP 40 mg BID LAURITA Administration Simethicone 80 mg 09/05/23 09:00 09/06/23 09:24 Simethicone Chew 80 Mg Tablet PO 80 mg 0900,1300,1800,2100 LAURITA Administration Sodium Chloride 10 ml 09/05/23 01:00 09/06/23 09:25 Sodium Chloride Flush 0.9% 10 Ml Syringe IVP 10 ml 0100,0900,1700 LAURITA Administration Tramadol HCl 50 mg 09/05/23 08:29 09/05/23 21:23 Tramadol 50 Mg Tablet PO 50 mg Q12H PRN Administration Moderate Pain (Level 4-6) - Lab Result Fish Bone Diagrams: 09/06/23 05:47 09/06/23 05:47 Objective Vital Signs: Vital Signs - 24 hr 09/05/23 09/05/23 09/05/23 12:51 15:24 20:56 Temperature 37.2 C 36.7 C 37.1 C Heart Rate [ 94 90 Brachial] Heart Rate [ 98 Monitoring electrodes] Respiratory 18 18 18 Rate Blood Pressure 82/54 L 120/58 L 113/67 [Left Brachial artery] O2 Saturation 99 99 98 09/05/23 09/06/23 09/06/23 23:50 04:35 07:25 Temperature 36.7 C 36.7 C 36.7 C Heart Rate [ 77 74 77 Brachial] Heart Rate [ Monitoring electrodes] Respiratory 18 18 16 Rate Blood Pressure 100/63 112/67 104/69 [Left Brachial artery] O2 Saturation 99 100 98 Oxygen O2 Source Room air I&O (Last 24 Hrs): Intake and Output Totals x24h 09/04/23 09/05/23 09/06/23 23:59 23:59 23:59 Intake Total 750 4047.667 950 Output Total 602 Balance 750 3445.667 950 - Results Results: Laboratory Results WBC 6.6 x10^3/uL (4.8-10.8) 09/06/23 05:47 RBC 3.40 10^6/uL (4.20-5.40) L 09/06/23 05:47 Hgb 9.3 g/dL (12.0-16.0) L 09/06/23 05:47 Hct 28.6 % (37.0-47.0) L 09/06/23 05:47 MCV 84.1 fL (81.0-99.0) 09/06/23 05:47 MCH 27.4 pg (27.0-31.0) 09/06/23 05:47 MCHC 32.5 g/dL (32.0-36.0) 09/06/23 05:47 RDW 16.2 % (12.0-15.0) H 09/06/23 05:47 Plt Count 286 10^3/uL (130-450) 09/06/23 05:47 MPV 8.0 fL (7.9-10.8) 09/06/23 05:47 Neut # (Auto) 4.1 10^3/uL (1.5-6.6) 09/06/23 05:47 Lymph # (Auto) 1.6 10^3/uL (1.5-3.5) 09/06/23 05:47 [place] # (Auto) 0.6 10^3/uL (0.0-1.0) 09/06/23 05:47 Eos # (Auto) 0.2 10^3/uL (0.0-0.7) 09/06/23 05:47 Baso # (Auto) 0.1 10^3/uL (0.0-0.1) 09/06/23 05:47 Absolute Nucleated RBC 0.00 x10^3/uL 09/06/23 05:47 Nucleated RBC % 0.0 /100WBC 09/06/23 05:47 Manual Slide Review Indicated 09/04/23 17:40 Platelet Estimate NORMAL (130-450,000) (NORMAL) 09/04/23 17:40 Platelet Morphology NORMAL APPEARANCE (NORMAL) 09/04/23 17:40 RBC Morph Micro Appear 2+ HYPOCHROMASIA (NORMAL) 09/04/23 17:40 PT 13.4 secs (9.9-12.6) H 09/04/23 17:40 INR 1.2 (0.8-1.2) 09/04/23 17:40 Sodium 136 mmol/L (135-145) 09/06/23 05:47 Potassium 4.3 mmol/L (3.5-4.5) 09/06/23 05:47 Chloride 106 mmol/L (101-111) 09/06/23 05:47 Carbon Dioxide 24 mmol/L (21-32) 09/06/23 05:47 Anion Gap 6.0 (6-13) 09/06/23 05:47 BUN 30 mg/dL (6-20) H 09/06/23 05:47 Creatinine 2.5 mg/dL (0.6-1.3) H 09/06/23 05:47 Estimated GFR (MDRD) 24 (>89) L 09/06/23 05:47 Glucose 82 mg/dL (74-104) 09/06/23 05:47 Estimat Average Glucose 85 mg/dL (70-100) 09/04/23 17:40 Hemoglobin A1c % 4.6 % (4.27-6.07) 09/04/23 17:40 Calcium 9.3 mg/dL (8.5-10.3) 09/06/23 05:47 Magnesium 2.4 mg/dL (1.7-2.3) H 09/06/23 05:47 Iron 92 ug/dL (50-212) 09/04/23 17:40 TIBC 312 ug/dL (250-450) 09/04/23 17:40 % Saturation 29 % (20-50) 09/04/23 17:40 Transferrin 223 mg/dL (203-362) 09/04/23 17:40 Total Bilirubin 1.2 mg/dL (0.2-1.0) H 09/05/23 05:34 AST 13 IU/L (10-42) 09/05/23 05:34 ALT 9 IU/L (10-60) L 09/05/23 05:34 Alkaline Phosphatase 59 IU/L (42-121) 09/05/23 05:34 Total Protein 6.9 g/dL (6.4-8.9) 09/05/23 05:34 Albumin 4.0 g/dL (3.2-5.5) 09/05/23 05:34 Globulin 2.9 g/dL (2.1-4.2) 09/05/23 05:34 Albumin/Globulin Ratio 1.4 (1.0-2.2) 09/05/23 05:34 Triglycerides 151 mg/dL 09/04/23 17:40 Triglycerides Cancelled 09/04/23 17:40 Cholesterol 143 mg/dL (-200) 09/04/23 17:40 Cholesterol Cancelled 09/04/23 17:40 LDL Cholesterol, Calc 74 mg/dL (-129) 09/04/23 17:40 LDL Cholesterol, Calc Cancelled 09/04/23 17:40 VLDL Cholesterol 30 mg/dL 09/04/23 17:40 VLDL Cholesterol Cancelled 09/04/23 17:40 HDL Cholesterol 39 mg/dL (60-) L 09/04/23 17:40 HDL Cholesterol Cancelled 09/04/23 17:40 LDL/HDL Ratio 1.9 (<4.4) 09/04/23 17:40 LDL/HDL Ratio Cancelled 09/04/23 17:40 Cholesterol/HDL Ratio 3.7 (<4.4) 09/04/23 17:40 Cholesterol/HDL Ratio Cancelled 09/04/23 17:40 Lipase 187 U/L (11-82) H 09/04/23 17:40 TSH 2.94 uIU/mL (0.34-5.60) 09/04/23 17:40 TSH Cancelled 09/04/23 17:40 Blood Type A POSITIVE 09/04/23 17:40 Blood Type Recheck A POSITIVE 09/04/23 15:43 Antibody Screen NEGATIVE 09/04/23 17:40 Crossmatch IS Only See Detail 09/04/23 17:40
--- NOTE | 2023-09-06 12:26 | PROVIDER PROGRESS NOTE ---
Subjective - General Admit Date: 09/05/23 - Other Other Information/Narrative: No pain, n/v, this AM. Patient has decided she would like to proceed with endoscopy today. Objective - Patient Data Vital Signs: Vital Signs x48h Temp Pulse Resp BP Pulse Ox 09/06/23 07:25 36.7 C 77 16 104/69 98 09/06/23 04:35 36.7 C 74 18 112/67 100 Weight: Weight 09/04/23 09/05/23 09/06/23 23:59 23:59 23:59 Weight (kg) 44.6 kg 44.6 kg Intake & Output: Intake and Output Totals x24h 09/04/23 09/05/23 09/06/23 23:59 23:59 23:59 Intake Total 750 4047.667 950 Output Total 602 Balance 750 3445.667 950 - Lab Results Lab Results: 09/06/23 05:47 09/06/23 05:47 Other Lab Results: Lab Results x24hrs 09/06/23 09/06/23 09/05/23 Range/Units 05:47 05:47 14:49 WBC 6.6 (4.8-10.8) x10^3/uL RBC 3.40 L (4.20-5.40) 10^6/uL Hgb 9.3 L 9.4 L (12.0-16.0) g/dL Hct 28.6 L 28.2 L (37.0-47.0) % MCV 84.1 (81.0-99.0) fL MCH 27.4 (27.0-31.0) pg MCHC 32.5 (32.0-36.0) g/dL RDW 16.2 H (12.0-15.0) % Plt Count 286 (130-450) 10^3/uL MPV 8.0 (7.9-10.8) fL Neut # (Auto) 4.1 (1.5-6.6) 10^3/uL Lymph # (Auto) 1.6 (1.5-3.5) 10^3/uL Sumter # (Auto) 0.6 (0.0-1.0) 10^3/uL Eos # (Auto) 0.2 (0.0-0.7) 10^3/uL Baso # (Auto) 0.1 (0.0-0.1) 10^3/uL Absolute Nucleated RBC 0.00 x10^3/uL Nucleated RBC % 0.0 /100WBC Sodium 136 (135-145) mmol/L Potassium 4.3 (3.5-4.5) mmol/L Chloride 106 (101-111) mmol/L Carbon Dioxide 24 (21-32) mmol/L Anion Gap 6.0 (6-13) BUN 30 H (6-20) mg/dL Creatinine 2.5 H (0.6-1.3) mg/dL Estimated GFR (MDRD) 24 L (>89) Glucose 82 (74-104) mg/dL Calcium 9.3 (8.5-10.3) mg/dL Magnesium 2.4 H (1.7-2.3) mg/dL Crossmatch IS Only 09/04/23 Range/Units 17:40 WBC (4.8-10.8) x10^3/uL RBC (4.20-5.40) 10^6/uL Hgb (12.0-16.0) g/dL Hct (37.0-47.0) % MCV (81.0-99.0) fL MCH (27.0-31.0) pg MCHC (32.0-36.0) g/dL RDW (12.0-15.0) % Plt Count (130-450) 10^3/uL MPV (7.9-10.8) fL Neut # (Auto) (1.5-6.6) 10^3/uL Lymph # (Auto) (1.5-3.5) 10^3/uL Sumter # (Auto) (0.0-1.0) 10^3/uL Eos # (Auto) (0.0-0.7) 10^3/uL Baso # (Auto) (0.0-0.1) 10^3/uL Absolute Nucleated RBC x10^3/uL Nucleated RBC % /100WBC Sodium (135-145) mmol/L Potassium (3.5-4.5) mmol/L Chloride (101-111) mmol/L Carbon Dioxide (21-32) mmol/L Anion Gap (6-13) BUN (6-20) mg/dL Creatinine (0.6-1.3) mg/dL Estimated GFR (MDRD) (>89) Glucose (74-104) mg/dL Calcium (8.5-10.3) mg/dL Magnesium (1.7-2.3) mg/dL Crossmatch IS Only See Detail - Current Medications Current Medications: Current Medications Generic Name Dose Route Start Last Admin Trade Name Freq PRN Reason Stop Dose Admin Acetaminophen 650 mg 09/04/23 21:29 09/06/23 02:18 Acetaminophen 325 Mg Tablet PO 650 mg Q6H PRN Administration Pain 1 to 4, or Fever Docusate Sodium 100 mg 09/06/23 08:41 09/06/23 09:24 Docusate Sodium 100 Mg Capsule PO 100 mg BID PRN Administration Constipation Lactated Ringer's 1,000 mls @ 100 mls/hr 09/04/23 22:00 09/06/23 05:08 Lr IV 100 mls/hr .Q10H LAURITA Administration Ondansetron HCl 4 mg 09/04/23 21:29 09/05/23 03:01 Ondansetron 4 Mg/2 Ml Vial IVP 4 mg Q6HR PRN Administration Nausea / Vomiting Pantoprazole Sodium 40 mg 09/05/23 21:00 09/06/23 09:24 Pantoprazole 40 Mg Vial IVP 40 mg BID LAURITA Administration Simethicone 80 mg 09/05/23 09:00 09/06/23 09:24 Simethicone Chew 80 Mg Tablet PO 80 mg 0900,1300,1800,2100 LAURITA Administration Sodium Chloride 10 ml 09/05/23 01:00 09/06/23 09:25 Sodium Chloride Flush 0.9% 10 Ml Syringe IVP 10 ml 0100,0900,1700 LAURITA Administration Tramadol HCl 50 mg 09/05/23 08:29 09/05/23 21:23 Tramadol 50 Mg Tablet PO 50 mg Q12H PRN Administration Moderate Pain (Level 4-6) - Physical Exam Comments/Other: Gen: nad, alert and oriented CV: rrr Pulm: non labored, on RA Abd: soft, NT, +fullness in lower abdomen Impression/Plan - Problem List Problem List: This is a 58-year-old female with: 1. Pelvic mass -Currently being worked up by Dr. Malave of gynecologic oncology 2. Anemia -Hemoglobin >9, stable this AM to r/o upper GI bleed as contributing to anemia, plan for upper endoscopy this AM. I discussed the risks, benefits, and alternatives of upper endoscopy including bleeding and perforation with the patient. She voiced understanding, her questions were answered, and a consent was signed by the patient. Post procedure update: mild duodenitis, no ulcers, no stigmata of or active bleeding identified. Ok to discharge. Recommend PPI as patient was having gerd symptoms prior to admission. Thank you very much for consulting me in the care of this patient. I will continue to follow.
[2023-09-06] MEDS: LACTATED RINGERS 1,000 ML IV ONE (12:29)
[2023-09-06] MEDS ORDERED: ATROPINE ABBOJECT 1 MG/10 ML SYRINGE IVP PRN ×2 (12:38→12:49)
[2023-09-06] MEDS ORDERED: METOCLOPRAMIDE 10 MG/2 ML VIAL IVP PRN ×2 (12:38→12:49)
[2023-09-06] MEDS ORDERED: fentaNYL 100 MCG/2 ML VIAL IVP PRN ×2 (12:38→12:49)
[2023-09-06] MEDS ORDERED: ePHEDrine 50 MG/ML VIAL IVP PRN ×2 (12:38→12:49)
[2023-09-06] MEDS ORDERED: NALOXONE 0.4 MG/ML VIAL IVP PRN ×2 (12:38→12:49)
[2023-09-06] MEDS ORDERED: ONDANSETRON 4 MG/2 ML VIAL IVP PRN ×2 (12:38→12:49)
[2023-09-06] MEDS ORDERED: LACTATED RINGERS 1,000 ML IV SCH (13:00)
--- NOTE | 2023-09-06 13:32 | ANESTHESIA POST OP EVALUATION ---
Anesthesia Post Eval - Post Anesthesia Eval Vitals: Last Vital Signs Temp 36.6 C 09/06/23 12:50 Pulse 73 09/06/23 13:04 Resp 15 09/06/23 13:04 BP 114/74 09/06/23 13:04 Pulse Ox 100 09/06/23 13:04 O2 Flow Rate CV Function Including HR & BP: Stable Pain Control: Satisfactory Nausea & Vomiting: Negative Mental Status: Baseline Respiratory Status: Airway Patent Hydration Status: Satisfactory Anesthesia Complications: None
--- NOTE | 2023-09-06 13:45 | ANESTHESIA POST OP EVALUATION ---
Anesthesia Post Eval - Post Anesthesia Eval Vitals: Last Vital Signs Temp 36.4 C L 09/06/23 13:41 Pulse 72 09/06/23 13:41 Resp 18 09/06/23 13:41 BP 120/80 09/06/23 13:41 Pulse Ox 98 09/06/23 13:41 O2 Flow Rate CV Function Including HR & BP: Stable Pain Control: Satisfactory Nausea & Vomiting: Negative Mental Status: Baseline Respiratory Status: Airway Patent Hydration Status: Satisfactory Anesthesia Complications: None
[2023-09-06] MEDS: LACTATED RINGERS 1,000 ML IV SCH (14:48)
[2023-09-06] MEDS: traZODone 50 MG TABLET PO SCH (21:01)
[2023-09-06 23:31] VITALS: O2SAT 99
[2023-09-07 05:50] LABS: BASOPHILS # (AUTO) 0.1 10^3/uL (0.0-0.1); BASOPHILS % (AUTO) 1.3 %; EOSINOPHILS # (AUTO) 0.2 10^3/uL (0.0-0.7); EOSINOPHILS % (AUTO) 2.4 %; HCT - HEMATOCRIT 27.8 % (37.0-47.0); HGB - HEMOGLOBIN 8.8 g/dL (12.0-16.0); LYMPHOCYTES # (AUTO) 1.4 10^3/uL (1.5-3.5); LYMPHOCYTES % (AUTO) 22.3 %; MEAN CORPUSCULAR HEMOGLOBIN 26.8 pg (27.0-31.0); MEAN CORPUSCULAR HGB CONC 31.7 g/dL (32.0-36.0); MEAN CORPUSCULAR VOLUME 84.8 fL (81.0-99.0); MEAN PLATELET VOLUME 8.5 fL (7.9-10.8); MONOCYTES # (AUTO) 0.6 10^3/uL (0.0-1.0); MONOCYTES % (AUTO) 9.1 %; NEUTROPHILS % (AUTO) 64.7 %; PLT - PLATELET COUNT 276 10^3/uL (130-450); RED BLOOD COUNT 3.28 10^6/uL (4.20-5.40); RED CELL DISTRIBUTION WIDTH 15.9 % (12.0-15.0); WHITE BLOOD COUNT 6.2 x10^3/uL (4.8-10.8)
[2023-09-07 06:02] LABS: CALCIUM 9.3 mg/dL (8.5-10.3); CREATININE 2.4 mg/dL (0.6-1.3); POTASSIUM 4.4 mmol/L (3.5-4.5)
--- NOTE | 2023-09-07 07:13 | Discharge Plan ---
Discharge Plan Problem Reviewed?: Yes Disposition: Home, Self Care Condition: Good Prescriptions: Pantoprazole [Protonix] 40 mg PO BID #90 tablet Diet: Regular Activity Restrictions: Activity as Tolerated No Smoking: If you smoke, Please STOP! Call for help.
--- NOTE | 2023-09-07 07:17 | DISCHARGE SUMMARY ---
"Discharge Summary Admit Date: 09/05/23 Discharge Date: 09/07/23 Discharging Provider: Rohini Field Primary Care Provider: Candy Reid Code Status: Attempt Resuscitation Condition at Discharge: Good Discharge Disposition: 01 Home, Self Care - HPI History of Present Illness: pt with current dx of gastric cancer, being followed by outpt heme/onc, told to come to er for evaluation d/t complaints of generalized weakness and low h/h, with h/o same. she states that she has been feeling overall weak, and was started outpt on oxycodone for pain control, which made her feel worse. she reports one episode of feeling lightheaded and then she fell on the floor at home but was able to get back home. no head injuries or loc or ams or confusion. she had labs done as outpt and hgb was 5. she will be started chemotherapy soon. no hematuria or blood per rectum or in stool. no chest pain, fevers, chills, but has some sob with walking. - CONSULTS | PROCEDURES Consultations: General surgery Procedures: EGD on 09/06/23 - HOSPITAL COURSE Hospital Course: Patient is a 58-year-old female who presented to the ED at the request of her gynecologic oncologist due to a low hemoglobin on routine labs. Upon presentation patient was noted to have a hemoglobin of 5 with complaints of weakness and dizziness. She was given 3 total units of packed red blood cells d uring her hospitalization which improved her hemoglobin to 8.8 on discharge with resolution of her symptoms. Patient underwent an EGD on 09/05 which revealed mild duodenitis without any evidence of active bleeding. She was started on pantoprazole 40 mg twice daily on discharge as well as oral iron supplementation. Of note, case was discussed with her gynecologic oncology team. Patient has a follow-up on 09/13. Her renal function was stable while inpatient. - ALLERGIES Allergies/Adverse Reactions: Allergies Allergy/AdvReac Type Severity Reaction Status Date / Time oxycodone AdvReac Emesis Verified 09/04/23 19:05 - MEDICATIONS Home Medications: Ambulatory Orders Medication Instructions Recorded Confirmed Docusate Sodium 100Mg Capsule 100 mg PO BID PRN 09/05/23 09/05/23 [Colace 100Mg Capsule] Simethicone [Mylicon] 80 mg PO QID PRN 07/09/24 07/09/24 Ferrous Gluconate 324 mg PO Q2D #30 tablet 09/07/23 Pantoprazole [Protonix] 40 mg PO BID #90 tablet 09/07/23 - PHYSICAL EXAM AT DISCHARGE General Appearance: positive: No acute distress, Alert Respiratory: positive: Chest non-tender, No respiratory distress Cardiovascular: positive: Regular rate & rhythm, No murmur, No gallop Abdomen: positive: Non-tender, No organomegaly, Nml bowel sounds Neurologic/Psychiatric: positive: Oriented x3, CN's nml (2-12) - LABS Result Diagrams: 09/07/23 05:33 09/07/23 05:33 - FOLLOW UP Follow Up: Follow up with with [employer] [facility] on 09/13. - TIME SPENT Time Spent in Discharge (Minutes): 30"
[2023-09-07 07:37] VITALS: BP 126/86
== END 2023-09-07 08:55 | disposition home or self-care (01) | DRG 812 ==
LOC: ED 16:55 → MS2 21:31 → OBSVTOIN 09-05 13:00
PROVIDERS: ADMIT Student in an Organized Health Care Education/Training Program; ATTEND Family Medicine
PROC: 0DB68ZX Excision of Stomach, Via Natural or Artificial Opening Endoscopic, Diagnostic (ICD-10-PCS; 2023-09-06)
PROC: 0DB58ZX Excision of Esophagus, Via Natural or Artificial Opening Endoscopic, Diagnostic (ICD-10-PCS; 2023-09-06)
PROC: 0DB98ZX Excision of Duodenum, Via Natural or Artificial Opening Endoscopic, Diagnostic (ICD-10-PCS; principal; 2023-09-06 13:45)
DX: D64.9 Anemia, unspecified (principal); D62 Acute posthemorrhagic anemia; R00.0 Tachycardia, unspecified; C16.9 Malignant neoplasm of stomach, unspecified; N17.9 Acute kidney failure, unspecified; C56.9 Malignant neoplasm of unspecified ovary; N13.30 Unspecified hydronephrosis; K29.80 Duodenitis without bleeding; I10 Essential (primary) hypertension; R53.1 Weakness; K21.9 Gastro-esophageal reflux disease without esophagitis; R19.00 Intra-abdominal and pelvic swelling, mass and lump, unspecified site; K22.89 Other specified disease of esophagus; Z91.81 History of falling
CPT/HCPCS: 36415; 36430; 76770; 80048; 80053; 80061; 83036; 83540; 83690; 83735; 84443; 84466; 85014; 85018; 85025; 85610; 86850; 86900; 86901; 86920; 96374; 96375; 99284; 99285; A9270; G0378; J7120; P9016; 83721

== ENCOUNTER 2023-09-20 11:40 | Outpatient (CLI) | payer MEDICARE, MEDICAID ==
[2023-09-20 11:56] LABS: HCT - HEMATOCRIT 29.4 % (37.0-47.0); HGB - HEMOGLOBIN 9.1 g/dL (12.0-16.0); MEAN CORPUSCULAR HEMOGLOBIN 27.1 pg (27.0-31.0); MEAN CORPUSCULAR VOLUME 87.5 fL (81.0-99.0); MEAN PLATELET VOLUME 8.5 fL (7.9-10.8); RED BLOOD COUNT 3.36 10^6/uL (4.20-5.40); RED CELL DISTRIBUTION WIDTH 14.6 % (12.0-15.0); WHITE BLOOD COUNT 6.3 x10^3/uL (4.8-10.8)
[2023-09-20 12:54] LABS: ALBUMIN 4.5 g/dL (3.2-5.5); ALBUMIN/GLOBULIN RATIO 1.4 (1.0-2.2); BILIRUBIN,TOTAL 0.6 mg/dL (0.2-1.0); CALCIUM 10.3 mg/dL (8.5-10.3); CREATININE 4.2 mg/dL (0.6-1.3); POTASSIUM 6.3 mmol/L (3.5-4.5); TOTAL PROTEIN 7.7 g/dL (6.4-8.9)
== END 2023-09-20 11:41 | disposition home or self-care (01) ==
LOC: LAB 11:40
PROVIDERS: ATTEND Obstetrics & Gynecology
DX: D64.9 Anemia, unspecified (principal); C56.9 Malignant neoplasm of unspecified ovary; N13.1 Hydronephrosis with ureteral stricture, not elsewhere classified
CPT/HCPCS: 36415; 80053; 83540; 84466; 85027

== ENCOUNTER 2023-09-22 08:14 | Outpatient (CLI) | payer MEDICARE, MEDICAID ==
[2023-09-22 08:45] LABS: CALCIUM 10.6 mg/dL (8.5-10.3); CREATININE 3.6 mg/dL (0.6-1.3); POTASSIUM 4.5 mmol/L (3.5-4.5)
== END 2023-09-22 08:15 | disposition home or self-care (01) ==
LOC: LAB 08:14
PROVIDERS: ATTEND Obstetrics & Gynecology
DX: E87.5 Hyperkalemia (principal); R79.89 Other specified abnormal findings of blood chemistry
CPT/HCPCS: 36415; 80048

== ENCOUNTER 2023-10-02 08:00 | Outpatient (CLI) | payer MEDICARE, MEDICAID ==
[2023-10-02 13:15] LABS: HCT - HEMATOCRIT 30.7 % (37.0-47.0); HGB - HEMOGLOBIN 9.9 g/dL (12.0-16.0); MEAN CORPUSCULAR HEMOGLOBIN 27.5 pg (27.0-31.0); MEAN CORPUSCULAR HGB CONC 32.2 g/dL (32.0-36.0); MEAN CORPUSCULAR VOLUME 85.3 fL (81.0-99.0); MEAN PLATELET VOLUME 8.7 fL (7.9-10.8); RED BLOOD COUNT 3.6 10^6/uL (4.20-5.40); RED CELL DISTRIBUTION WIDTH 13.8 % (12.0-15.0); WHITE BLOOD COUNT 12.9 x10^3/uL (4.8-10.8)
[2023-10-02 13:47] LABS: ALBUMIN 4.4 g/dL (3.2-5.5); ALBUMIN/GLOBULIN RATIO 1.5 (1.0-2.2); BILIRUBIN,TOTAL 0.6 mg/dL (0.2-1.0); CALCIUM 10.3 mg/dL (8.5-10.3); CREATININE 1.9 mg/dL (0.6-1.3); POTASSIUM 3.9 mmol/L (3.5-4.5); TOTAL PROTEIN 7.4 g/dL (6.4-8.9)
== END 2023-10-02 23:59 | disposition home or self-care (01) ==
LOC: LAB 08:00
PROVIDERS: ATTEND Obstetrics & Gynecology
DX: D64.9 Anemia, unspecified (principal); R79.89 Other specified abnormal findings of blood chemistry; E87.5 Hyperkalemia
CPT/HCPCS: 36415; 80053; 85027

== ENCOUNTER 2023-10-11 09:40 | Outpatient (CLI) | payer MEDICARE, MEDICAID ==
[2023-10-11 10:26] LABS: FERRITIN 148.6 ng/mL (11.0-306.8)
== END 2023-10-11 09:41 | disposition home or self-care (01) ==
LOC: LAB 09:40
PROVIDERS: ATTEND Anesthesiology
DX: Z01.818 Encounter for other preprocedural examination (principal); D64.9 Anemia, unspecified; C56.9 Malignant neoplasm of unspecified ovary
CPT/HCPCS: 36415; 82728; 83540; 84466

== ENCOUNTER 2023-10-25 12:06 | Outpatient (CLI) | payer MEDICARE, MEDICAID ==
[2023-10-25 12:43] LABS: CALCIUM 9.9 mg/dL (8.5-10.3); CREATININE 1.4 mg/dL (0.6-1.3); POTASSIUM 4.1 mmol/L (3.5-4.5)
== END 2023-10-25 12:07 | disposition home or self-care (01) ==
LOC: LAB 12:06
PROVIDERS: ATTEND Obstetrics & Gynecology
DX: R79.89 Other specified abnormal findings of blood chemistry (principal)
CPT/HCPCS: 36415; 80048